=== PATIENT | female | born 1935 | race American Indian/Alaskan Native ===

== ENCOUNTER 2018-02-04 13:50 | Emergency (ER) | payer OTHER ==
--- NOTE | 2018-02-04 14:26 | C.PDOC ---
History Of Present Illness 82yo female, presents to ED with complaints of shortness of breath which started 3 hours ago, while she was walking. Patient states she took nitro because "I was told to take that whenever I get short of breath." She states she had a "heart CT scan" at [facility] and "everything was ok." She denies any chest pain, dizziness, headache, fever or URI symptoms. Patient is currently asymptomatic in ER and offers no other medical complaints. RECUR SOB ONSET 3 HRS AGO. ONSET WHILE WALKING. S/P NG "BC I WAS TOLD TAKE THAT WHENEVER I GET SOB". PS S/P "HEART CT SCAN" AT [facility] "EVERYTHING WAS OK". NO ASSOC CP, DIZZY, SWANN. CURRENTLY ASYMPT. NO URI SX, FEVER. EXAM NARD LUNGS NEG AMBUL WO RAMOS, COMFORTABLE NO EDEMA REMAINDER NEG Time Seen by Provider: 02/04/18 14:10 Chief Complaint (Nursing): Shortness Of Breath History Per: Patient History/Exam Limitations: no limitations Onset/Duration Of Symptoms: Hrs Current Symptoms Are (Timing): Still Present Initiating Event: Other (walking) Associated Symptoms: denies: Fever, Chills, Chest Pain, Dizziness Past Medical History Reviewed: Historical Data, Nursing Documentation, Vital Signs Vital Signs: Last Vital Signs Temp 97.3 F L 02/04/18 13:58 Pulse 65 02/04/18 16:55 Resp 16 02/04/18 16:55 BP 156/68 H 02/04/18 16:55 Pulse Ox 98 02/04/18 18:16 - Medical History PMH: HTN, Hypercholesterolemia (NOT SURE) Surgical History: No Surg Hx Family History: States: No Known Family Hx - Social History Hx Alcohol Use: No Hx Substance Use: No - Immunization History Hx Tetanus Toxoid Vaccination: No Hx Influenza Vaccination: No Hx Pneumococcal Vaccination: No Review Of Systems Except As Marked, All Systems Reviewed And Found Negative. Constitutional: Negative for: Fever, Chills ENT: Negative for: Throat Pain Cardiovascular: Negative for: Chest Pain Respiratory: Positive for: Shortness of Breath. Negative for: Cough Neurological: Negative for: Headache, Dizziness Physical Exam - Physical Exam Appears: Non-toxic, No Acute Distress Skin: Normal Color, Warm, Dry Head: Atraumatic, Normacephalic Eye(s): bilateral: PERRL, EOMI Neck: Normal ROM, Supple Chest: Symmetrical Cardiovascular: Rhythm Regular Respiratory: Normal Breath Sounds, No Rales, No Rhonchi, No Wheezing Gastrointestinal/Abdominal: Normal Exam, Soft, No Tenderness Extremity: Normal ROM, No Pedal Edema, Other (ambulating without dyspnea on exertion) Neurological/Psych: Oriented x3, Normal Speech, Normal Cognition, Normal Motor, Normal Sensation ED Course And Treatment - Laboratory Results Result Diagrams: 02/04/18 14:51 02/04/18 14:51 ECG: Interpreted By Me ECG Rhythm: Sinus Rhythm ECG Interpretation: Normal Rate From EC O2 Sat by Pulse Oximetry: 98 (RA) Pulse Ox Interpretation: Normal - CT Scan/US CT Chest Other Rad Studies (CT/US): Read By Radiologist, Radiology Report Reviewed CT/US Interpretation: PROCEDURE: CT Chest with contrast (Pulmonary Angiogram) dated 02/04/2018. HISTORY: SOB. Rule out PE. COMPARISON: Comparison made with chest radiograph obtained earlier same day. TECHNIQUE: Axial computed tomography images were obtained of the chest in the pulmonary arterial phase of enhancement. Coronal and sagittal reformatted images were created and reviewed. Intravenous contrast dose: 100 cc Visipaque 320. Radiation dose: Total exam DLP = 556.46 mGy-cm. This CT exam was performed using one or more of the following dose reduction techniques: Automated exposure control, adjustment of the mA and/or kV according to patient size, and/or use of iterative reconstruction technique. . FINDINGS: PULMONARY ARTERIES: The visualized pulmonary trunk, right and left main, lobar segmental and proximal subsegmental branches of the pulmonary arteries appear relatively well opacified with no definitive filling defects seen to suggest acute central pulmonary embolus. The pulmonary trunk measures approximately 2.45 cm. AORTA: No evidence of thoracic aortic aneurysm. Ascending thoracic aorta measures approximately 3.0 cm and descending thoracic aorta measures approximately 2.3 cm. LUNGS: Unremarkable. No nodule, mass or pulmonary consolidation. PLEURAL SPACES: Unremarkable. No effusion or pneumothorax. . HEART: Mild cardiomegaly. No significant pericardial effusion. LYMPH NODES: No lymphadenopathy. BONES, CHEST WALL: Mild multilevel degenerative spondylosis of the thoracic spine. Minor chronic anterior wedge deformities of several mid to lower thoracic segments. There is a small hiatal hernia with wall thickening of the distal esophagus likely due to protrusion of gastric mucosa. . Clinical correlation recommended to determine whether endoscopy followup is warranted to exclude other pathology as well. Intraluminal gallbladder calculi with questionable hyperdense sludge or possibly vicarious excretion of contrast material. Recommend followup from gallbladder ultrasound. OTHER FINDINGS: Unremarkable. IMPRESSION: No evidence of acute central pulmonary embolus. Cholelithiasis with questionable hyperdense sludge or possibly vicarious excretion of contrast material. Recommend followup gallbladder ultrasound. Progress - Re-Evaluation Re-evaluation Note: 02/04/18 15:14 NARD APPEARS COMFORTABLE VSS. WILL CTA +DDIMER 02/04/18 18:42 REPEAT EKG UNCH PRIOR NSR @60 REMAINS ASYMPT NO RECUR SX SINCE INITIAL EVAL. VSS. 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 ADVISED FU PMD/CARDIO RETURN IF WORSENING SYMPTOMS - Data Reviewed Data Reviewed: Lab, Diagnostic imaging, EKG, Old records Medical Decision Making Medical Decision Making: Plan: -- EKG -- Labs -- CXR Disposition Counseled Patient/Family Regarding: Studies Performed, Diagnosis, Need For Followup - Disposition Referrals: YOUR,TRANSIT OPERATOR [Other] Disposition: HOME/ ROUTINE Disposition Time: 18:48 Condition: GOOD Instructions: Shortness of Breath (Dyspnea) (DC) Forms: Patient Feed (Comoran) - Clinical Impression Clinical Impression: Dyspnea - Scribe Statement The provider has reviewed the documentation as recorded by the Scribe (Akiko Salomon) Provider Attestation: All medical record entries made by the Adrianoibe were at my direction and personally dictated by me. I have reviewed the chart and agree that the record accurately reflects my personal performance of the history, physical exam, medical decision making, and the department course for this patient. I have also personally directed, reviewed, and agree with the discharge instructions and disposition.
--- NOTE | 2018-02-04 14:51 | RAD ---
HISTORY: SOB COMPARISON: No prior. TECHNIQUE: Chest PA and lateral FINDINGS: LUNGS: No active pulmonary disease. PLEURA: No significant pleural effusion identified. No pneumothorax apparent. CARDIOVASCULAR: Atherosclerotic aortic calcifications. Cardiomediastinal silhouette prominent. OSSEOUS STRUCTURES: Degenerative changes. VISUALIZED UPPER ABDOMEN: Normal. OTHER FINDINGS: None. IMPRESSION: No active disease.
[2018-02-04 14:57] LABS: BASO # 0.1 K/uL (0.0-0.2); EOS # 0.1 K/uL (0.0-0.7); EOS % 1.7 % (0.0-4.0); HEMOGLOBIN 10.6 g/dL (11.0-16.0); LYMPH % 41.2 % (20.0-40.0); MEAN CELL VOLUME 88.8 fL (81.0-99.0); MEAN CORPUSCULAR HEMOGLOBIN 29.7 pg (27.0-31.0); MEAN CORPUSCULAR HGB CONC 33.4 g/dL (33.0-37.0); MEAN PLATELET VOLUME 8.8 fL (7.2-11.7); MONO # 0.6 K/uL (0.0-0.8); MONO % 8.7 % (0.0-10.0); NEUT # 3.4 K/uL (1.8-7.0); NEUT % 47.4 % (50.0-75.0); RBC 3.58 Mil/uL (3.80-5.20); RED CELL DISTRIBUTION WIDTH 13.9 % (11.5-14.5); WHITE BLOOD COUNT 7.2 K/uL (4.8-10.8)
[2018-02-04 15:16] LABS: ALB/GLOB RATIO 0.9 (1.0-2.1); ALT/SGPT 11 U/L (9-52); AST/SGOT 25 U/L (14-36); BLOOD UREA NITROGEN 11 mg/dL (7-17); CALCIUM 9.6 mg/dl (8.6-10.4); GFR AFRICAN-AMERICAN > 60; GFR NON-AFRICAN AMERICAN > 60
[2018-02-04 15:21] LABS: B-TYPE NATRIURETIC PEPTIDE 77.1 pg/mL (0-900)
[2018-02-04] MEDS ORDERED: Iodixanol 320 MG/ML 100 ML BOTTLE IV ONE (15:48)
--- NOTE | 2018-02-04 17:46 | CT ---
PROCEDURE: CT Chest with contrast (Pulmonary Angiogram) dated 02/04/2018 HISTORY: SOB. Rule out PE. COMPARISON: Comparison made with chest radiograph obtained earlier same day TECHNIQUE: Axial computed tomography images were obtained of the chest in the pulmonary arterial phase of enhancement. Coronal and sagittal reformatted images were created and reviewed. Intravenous contrast dose: 100 cc Visipaque 320 Radiation dose: Total exam DLP = 556.46 mGy-cm. This CT exam was performed using one or more of the following dose reduction techniques: Automated exposure control, adjustment of the mA and/or kV according to patient size, and/or use of iterative reconstruction technique. . FINDINGS: PULMONARY ARTERIES: The visualized pulmonary trunk, right and left main, lobar segmental and proximal subsegmental branches of the pulmonary arteries appear relatively well opacified with no definitive filling defects seen to suggest acute central pulmonary embolus. The pulmonary trunk measures approximately 2.45 cm. AORTA: No evidence of thoracic aortic aneurysm. Ascending thoracic aorta measures approximately 3.0 cm and descending thoracic aorta measures approximately 2.3 cm. LUNGS: Unremarkable. No nodule, mass or pulmonary consolidation. PLEURAL SPACES: Unremarkable. No effusion or pneumothorax. . HEART: Mild cardiomegaly. No significant pericardial effusion. LYMPH NODES: No lymphadenopathy. BONES, CHEST WALL: Mild multilevel degenerative spondylosis of the thoracic spine. Minor chronic anterior wedge deformities of several mid to lower thoracic segments. There is a small hiatal hernia with wall thickening of the distal esophagus likely due to protrusion of gastric mucosa. . Clinical correlation recommended to determine whether endoscopy followup is warranted to exclude other pathology as well. Intraluminal gallbladder calculi with questionable hyperdense sludge or possibly vicarious excretion of contrast material. Recommend followup from gallbladder ultrasound OTHER FINDINGS: Unremarkable. IMPRESSION: No evidence of acute central pulmonary embolus. Cholelithiasis with questionable hyperdense sludge or possibly vicarious excretion of contrast material. Recommend followup gallbladder ultrasound.
[2018-02-04 19:34] VITALS: BP 138/81; PULSE 68; RESP 18; TEMP 98; O2SAT 100
--- NOTE | 2018-02-06 07:51 | CARD ---
APPROVED REPORT EKG Measurement Heart [id number] <Conclusion> Normal sinus rhythm Voltage criteria for left ventricular hypertrophy Nonspecific T wave abnormality Abnormal ECG
--- NOTE | 2018-02-06 08:00 | CARD ---
APPROVED REPORT EKG Measurement Heart [id number] <Conclusion> Normal sinus rhythm Moderate voltage criteria for LVH, may be normal variant Nonspecific T wave abnormality Abnormal ECG
== END 2018-02-04 19:35 | disposition home or self-care (01) ==
LOC: C.ER 13:50
DX: R06.00 Dyspnea, unspecified (principal); I10 Essential (primary) hypertension; E78.00 Pure hypercholesterolemia, unspecified
CPT/HCPCS: 71046; 71275; 80053; 83880; 84484; 85025; 85378; 99285; Q9967